=== PATIENT | female | born 1965 | race Caucasian/White ===

== ENCOUNTER → 2018-06-22 07:55 | Outpatient (CLI) | payer MEDICARE, MEDICAID, SELFPAY ==
[2018-06-22 08:04] LABS: Microscopic, Urine URINE MICROSCOPIC (MICROSCOPIC)
[2018-06-22 14:08] LABS: Appearance,Urine CLEAR (Clear); Bilirubin,Urine Negative (Negative); Blood, Urine 2+ (Negative); Color,Urine YELLOW (Yellow); Glucose,Urine (UA) Negative (Negative); Ketones,Urine Negative (Negative); Leukocyte Esterase,Urine TRACE (Negative); Nitrate,Urine Negative (Negative); Protein,Urine Negative (Negative); Urobilinogen,Urine 0.2 EU/dl (0.2)
[2018-06-22 14:10] LABS: Basophils % 0.6 % (0.1-2.0); Eosinophils # 0.4 K/mm3 (0.0-0.4); Eosinophils % 5.9 % (0.1-12.0); Hematocrit 33.2 % (37.0-47.0); Hemoglobin 10.8 g/dL (12.2-16.2); Lymphocytes # 1.9 K/mm3 (0.7-4.5); Lymphocytes % 27.6 % (10-50); Mean Corpuscular HGB Conc 32.4 g/dL (31.8-35.4); Mean Corpuscular Hemoglobin 27.8 pg (27.0-31.2); Mean Corpuscular Volume 85.6 fl (81-99); Mean Platelet Volume 8.1 fl (7.4-10.4); Monocytes # 0.3 K/mm3 (0.1-1.0); Monocytes % 4.7 % (1.7-9.3); Neutrophils # 4.2 K/mm3 (1.8-7.8); Neutrophils % 61.2 % (37.0-80.0); Platelet Count 307 K/mm3 (142-424); Red Blood Count 3.88 M/mm3 (4.20-5.40); Red Cell Distribution Width 14.1 % (11.5-17.5); White Blood Count 6.9 K/mm3 (4.8-10.8)
[2018-06-22 14:15] LABS: Creatinine,Urine Random 118 mg/dL (20-320); Total Protein,Urine Random 19.3 mg/dL (0.0-11.9)
[2018-06-22 14:20] LABS: Albumin Level 3.8 gm/dL (3.4-5.0); Anion Gap 14.6 mEq/L (5-15); Blood Urea Nitrogen 14 mg/dL (7-18); Calcium 9.4 mg/dL (8.5-10.1); Carbon Dioxide 28 mmol/L (21.0-32.0); Chloride 102 mmol/L (98-107); Creatinine,Serum 0.78 mg/dL (0.55-1.02); Estimated Glomerular Filt Rate 78 ml/min (>60); GFR (African American) 94 ML/MIN (>60); Glucose 177 mg/dL (74-106); Phosphorous 4.1 mg/dL (2.4-4.9); Potassium 3.6 mmoL/L (3.5-5.1); Sodium 141 mmol/L (136-145)
[2018-06-22 14:47] LABS: Bacteria,Urine Trace /lpf; WBC,Urine 20-50 #/hpf (0-3)
[2018-06-24 08:10] LABS: Vitamin D 25 Hydroxy 27.3 ng/mL (30.0-100.0)
== END ==
PROVIDERS: Visit Provider Internal Medicine Nephrology
DX: R80.9 Proteinuria, unspecified (principal)
CPT/HCPCS: 36415; 80069; 81001; 82570; 82652; 84155; 85025; 87086

== ENCOUNTER → 2018-06-27 13:38 | Outpatient (POV) | payer MEDICARE, MEDICAID, SELFPAY | PROVIDERS: Visit Provider Internal Medicine Nephrology | DX: Z00.00 Encounter for general adult medical examination without abnormal findings (principal) ==

== ENCOUNTER 2018-08-10 09:00 | Outpatient (RCR) | payer MEDICARE, MEDICAID, SELFPAY | END 2018-08-24 07:27 | disposition home or self-care (01) | LOC: PT.CARL 09:00 | PROVIDERS: Visit Provider Physician Assistant | DX: M51.25 Other intervertebral disc displacement, thoracolumbar region (principal); M54.16 Radiculopathy, lumbar region | CPT/HCPCS: 97012; 97110; 97140; 97163 ==

== ENCOUNTER → 2019-06-22 07:56 | Outpatient (CLI) | payer MEDICARE, MEDICAID, SELFPAY ==
[2019-06-22 08:03] LABS: Microscopic, Urine URINE MICROSCOPIC (MICROSCOPIC)
[2019-06-22 13:38] LABS: Appearance,Urine CLEAR (Clear); Bilirubin,Urine Negative (Negative); Blood, Urine Negative (Negative); Color,Urine YELLOW (Yellow); Glucose,Urine (UA) Negative (Negative); Ketones,Urine Negative (Negative); Leukocyte Esterase,Urine Negative (Negative); Nitrate,Urine Negative (Negative); Protein,Urine Negative (Negative); Specific Gravity, Urine 1.025 (1.005-1.030); Urobilinogen,Urine 0.2 EU/dl (0.2)
[2019-06-22 13:41] LABS: Basophils # 0.2 K/mm3 (0-0.2); Basophils % 1.8 % (0.1-2.0); Eosinophils # 0.7 K/mm3 (0.0-0.4); Eosinophils % 6.3 % (0.1-12.0); Hemoglobin 10.4 g/dL (12.2-16.2); Lymphocytes # 1.7 K/mm3 (0.7-4.5); Lymphocytes % 14.9 % (10-50); Mean Corpuscular HGB Conc 31.6 g/dL (31.8-35.4); Mean Corpuscular Hemoglobin 26.8 pg (27.0-31.2); Mean Corpuscular Volume 84.6 fl (81-99); Mean Platelet Volume 8.2 fl (7.4-10.4); Monocytes # 0.4 K/mm3 (0.1-1.0); Monocytes % 3.8 % (1.7-9.3); Neutrophils # 8.2 K/mm3 (1.8-7.8); Neutrophils % 73.2 % (37.0-80.0); Platelet Count 363 K/mm3 (142-424); Red Cell Distribution Width 14.2 % (11.5-17.5); White Blood Count 11.2 K/mm3 (4.8-10.8)
[2019-06-22 13:43] LABS: Creatinine,Urine Random 130 mg/dL (Not Estab.)
[2019-06-22 13:48] LABS: Albumin Level 4.1 g/dl (3.5-5.0); Anion Gap 13.2 mEq/L (5-15); Blood Urea Nitrogen 12 mg/dl (7-17); Calcium 9.9 mg/dl (8.4-10.2); Carbon Dioxide 27 mmol/L (22.0-30.0); Chloride 102 mmol/L (98-107); Estimated Glomerular Filt Rate 75 ml/min (>60); GFR (African American) 91 ML/MIN (>60); Glucose 164 mg/dl (74-100); Phosphorous 3.7 mg/dl (2.5-4.5); Potassium 4.2 mmoL/L (3.5-5.1); Sodium 138 mmol/L (136-145)
[2019-06-22 13:52] LABS: Bacteria,Urine 1+ /lpf
[2019-06-23 09:25] LABS: Vitamin D 25 Hydroxy 26.8 ng/mL (30.0-100.0)
[2019-06-24 17:08] LABS: F352 IgE Ara h8 <0.10 kU/L (Class 0); F447 IgE Ara h6 <0.10 kU/L (Class 0)
[2019-06-24 19:24] LABS: Parathyroid Hormone Intact 47 pg/mL (15-65)
[2019-06-24 19:26] LABS: Immunoglobulin E, Total 388 IU/mL (6-495)
== END ==
PROVIDERS: Nurse Practitioner; Visit Provider Internal Medicine Nephrology
DX: R80.9 Proteinuria, unspecified (principal); J45.50 Severe persistent asthma, uncomplicated; T78.1XXA Other adverse food reactions, not elsewhere classified, initial encounter; E55.9 Vitamin D deficiency, unspecified
CPT/HCPCS: 80069; 81001; 82570; 82652; 82785; 83970; 84155; 85025; 86008; 87086

== ENCOUNTER → 2020-07-01 16:19 | Outpatient (CLI) | payer MEDICARE, MEDICAID, SELFPAY ==
[2020-07-01 16:58] LABS: Basophils # 0.1 K/mm3 (0-0.2); Basophils % 0.8 % (0.1-2.0); Eosinophils # 0.4 K/mm3 (0.0-0.4); Eosinophils % 4.3 % (0.1-12.0); Hematocrit 30.7 % (37.0-47.0); Hemoglobin 9.7 g/dL (12.2-16.2); Lymphocytes # 2.6 K/mm3 (0.7-4.5); Lymphocytes % 27.9 % (10-50); Mean Corpuscular HGB Conc 31.4 g/dL (31.8-35.4); Mean Corpuscular Hemoglobin 24.8 pg (27.0-31.2); Mean Corpuscular Volume 78.9 fl (81-99); Mean Platelet Volume 8.1 fl (7.4-10.4); Monocytes # 0.5 K/mm3 (0.1-1.0); Monocytes % 5.8 % (1.7-9.3); Neutrophils # 5.7 K/mm3 (1.8-7.8); Neutrophils % 61.2 % (37.0-80.0); Platelet Count 368 K/mm3 (142-424); Red Cell Distribution Width 15.6 % (11.5-17.5); White Blood Count 9.4 K/mm3 (4.8-10.8)
[2020-07-07 04:02] LABS: D001-IgE D pteronyssinus 1.96 kU/L (Class III); D002-IgE D farinae 1.08 kU/L (Class II); E001-IgE Cat Dander 0.91 kU/L (Class II); E005-IgE Dog Dander 0.31 kU/L (Class 0/I); G002-IgE Bermuda Grass 0.63 kU/L (Class II); G006-IgE Timothy Grass 0.16 kU/L (Class 0/I); Immunoglobulin E, Total 320 IU/mL (6-495); M001-IgE Penicillium chrysogen <0.10 kU/L (Class 0); M002-IgE Cladosporium herbarum <0.10 kU/L (Class 0); M003-IgE Aspergillus fumigatus <0.10 kU/L (Class 0); M006-IgE Alternaria alternata <0.10 kU/L (Class 0); T001-IgE Maple/Box Elder 0.41 kU/L (Class I); T006-IgE Cedar, Mountain 0.17 kU/L (Class 0/I); T010-IgE Walnut 0.31 kU/L (Class 0/I); T011-IgE Maple Leaf Sycamore 0.14 kU/L (Class 0/I); T014-IgE Cottonwood <0.10 kU/L (Class 0); T015-IgE Ash, White 0.28 kU/L (Class 0/I); T022-IgE Pecan, Hickory 0.22 kU/L (Class 0/I); T070-IgE White Mulberry <0.10 kU/L (Class 0); W001-IgE Ragweed, Short 3.14 kU/L (Class III); W011-IgE Thistle, Russian <0.10 kU/L (Class 0); W014-IgE Pigweed, Common 0.32 kU/L (Class I)
[2020-07-07 10:45] LABS: E072-IgE Mouse Urine 1.42 kU/L (Class III)
== END ==
PROVIDERS: Visit Provider Internal Medicine Pulmonary Disease
DX: J45.909 Unspecified asthma, uncomplicated
CPT/HCPCS: 36415; 82785; 85025; 86003

== ENCOUNTER → 2020-07-30 07:36 | Outpatient (CLI) | payer MEDICARE, MEDICAID, SELFPAY ==
[2020-07-30 09:30] VITALS: PULSE 75; PULSE 76
[2020-07-30 09:45] VITALS: BP 118/76; BP 138/84; PULSE 76; PULSE 81; RESP 20; RESP 22; O2SAT 97; O2SAT 98
== END ==
PROVIDERS: PCP Physician Assistant; Visit Provider Internal Medicine Pulmonary Disease
DX: R06.00 Dyspnea, unspecified (principal)
CPT/HCPCS: 94060; 94618; 94640; 94727; 94729

== ENCOUNTER → 2021-07-22 11:23 | Outpatient (CLI) | payer MEDICARE, MEDICAID, SELFPAY ==
[2021-07-22 13:24] LABS: Basophils # 0.1 K/mm3 (0-0.2); Basophils % 0.7 % (0.1-2.0); Eosinophils # 0.1 K/mm3 (0.0-0.4); Eosinophils % 1.3 % (0.1-12.0); Hematocrit 30.3 % (37.0-47.0); Hemoglobin 9.9 g/dL (12.2-16.2); Lymphocytes # 1.3 K/mm3 (0.7-4.5); Lymphocytes % 13.6 % (10-50); Mean Corpuscular HGB Conc 32.6 g/dL (31.8-35.4); Mean Corpuscular Volume 88.8 fl (81-99); Mean Platelet Volume 8.5 fl (7.4-10.4); Monocytes # 0.6 K/mm3 (0.1-1.0); Monocytes % 6.3 % (1.7-9.3); Neutrophils # 7.5 K/mm3 (1.8-7.8); Neutrophils % 78.1 % (37.0-80.0); Platelet Count 340 K/mm3 (142-424); Red Blood Count 3.41 M/mm3 (4.20-5.40); Red Cell Distribution Width 16.7 % (11.5-17.5); White Blood Count 9.6 K/mm3 (4.8-10.8)
[2021-07-22 14:00] LABS: Alanine Aminotransferase 13 U/L (12-78); Albumin Level 3.2 g/dl (3.5-5.0); Alkaline Phosphatase 71 U/L (38-126); Aspartate Amino Transferase 27 U/L (14-36); Bilirubin,Indirect 0.5 mg/dL (0.0-0.9); Bilirubin,Total 0.5 mg/dl (0.2-1.3); Bilirubin,Unconjugated 0.7 mg/dL (0.0-1.1); Blood Urea Nitrogen 13 mg/dl (7-17); Creatine Kinase < 20 U/L (30-135); Estimated Glomerular Filt Rate 52 ml/min (>60); GFR (African American) 62 ML/MIN (>60); Potassium 3.5 mmoL/L (3.5-5.1); Total Protein,Serum 6.4 g/dl (6.3-8.2)
[2021-07-22 14:24] LABS: C-Reactive Protein 20.6 mg/L (0-4)
== END ==
PROVIDERS: Visit Provider Student in an Organized Health Care Education/Training Program
DX: E11.49 Type 2 diabetes mellitus with other diabetic neurological complication (principal); Z79.4 Long term (current) use of insulin
CPT/HCPCS: 80076; 82550; 82565; 84132; 84520; 85025; 86140

== ENCOUNTER → 2021-07-29 11:44 | Outpatient (CLI) | payer MEDICARE, MEDICAID, SELFPAY ==
[2021-07-29 15:19] LABS: Basophils # 0.1 K/mm3 (0-0.2); Basophils % 0.9 % (0.1-2.0); Chloride 101 mmol/L (98-107); Eosinophils # 0.1 K/mm3 (0.0-0.4); Eosinophils % 1.2 % (0.1-12.0); Hemoglobin 9.1 g/dL (12.2-16.2); Lymphocytes # 1.1 K/mm3 (0.7-4.5); Lymphocytes % 14.1 % (10-50); Mean Corpuscular HGB Conc 32.3 g/dL (31.8-35.4); Mean Corpuscular Hemoglobin 28.7 pg (27.0-31.2); Mean Corpuscular Volume 88.7 fl (81-99); Mean Platelet Volume 9.6 fl (7.4-10.4); Monocytes # 0.4 K/mm3 (0.1-1.0); Monocytes % 5.2 % (1.7-9.3); Neutrophils # 6.2 K/mm3 (1.8-7.8); Neutrophils % 78.5 % (37.0-80.0); Platelet Count 353 K/mm3 (142-424); Potassium 3.4 mmoL/L (3.5-5.1); Red Blood Count 3.16 M/mm3 (4.20-5.40); Red Cell Distribution Width 16.3 % (11.5-17.5); Sodium 136 mmol/L (136-145); White Blood Count 7.9 K/mm3 (4.8-10.8)
[2021-07-29 15:21] LABS: Alanine Aminotransferase 11 U/L (12-78); Aspartate Amino Transferase 32 U/L (14-36); Blood Urea Nitrogen 11 mg/dl (7-17); Estimated Glomerular Filt Rate 52 ml/min (>60); GFR (African American) 62 ML/MIN (>60)
[2021-07-29 15:22] LABS: Albumin Level 3.4 g/dl (3.5-5.0); Albumin/Globulin Ratio 0.9 (1.1-1.8); Alkaline Phosphatase 70 U/L (38-126); Anion Gap 10.4 mEq/L (5-15); Bilirubin,Total 1.2 mg/dl (0.2-1.3); Calcium 8.8 mg/dl (8.4-10.2); Carbon Dioxide 28 mmol/L (22.0-30.0); Globulin 3.7 g/dL (1.3-3.2); Glucose 186 mg/dl (74-100); Total Protein,Serum 7.1 g/dl (6.3-8.2)
[2021-07-29 15:28] LABS: C-Reactive Protein 29.3 mg/L (0-4)
== END ==
PROVIDERS: Visit Provider Student in an Organized Health Care Education/Training Program
DX: E11.49 Type 2 diabetes mellitus with other diabetic neurological complication (principal); Z79.4 Long term (current) use of insulin; T82.6XXA Infection and inflammatory reaction due to cardiac valve prosthesis, initial encounter
CPT/HCPCS: 80053; 85025; 86140

== ENCOUNTER 2021-08-15 19:46 | Inpatient (IN) | payer MEDICARE, MEDICAID, SELFPAY ==
--- NOTE | 2021-08-15 10:10 | PC.NURSE ---
Lab called with a critical troponin of 0.33 Name, and lab value verified x2 MD aware.
--- NOTE | 2021-08-15 19:54 | PC.NURSE ---
patient up to floor via stretcher from EMS @ this time
[2021-08-15 19:56] VITALS: BMI 61.6
--- NOTE | 2021-08-15 19:58 | XR_ITS ---
PROCEDURE INFORMATION: Exam: XR Chest Exam date and time: 08/15/2021 9:16 PM Age: 56 years old Clinical indication: Pain; Chest pressure; Prior surgery; Surgery date: 6+ months; Surgery type: Pacemaker, open heart; Additional info: Chest pain TECHNIQUE: Imaging protocol: Radiologic exam of the chest. Views: 4 or more views. COMPARISON: ABDPELWO CT abdomen pelvis wo con 07/17/2017 10:22 PM FINDINGS: Tubes, catheters and devices: AICD in place with leads in appropriate position. Lungs: Pulmonary vascular congestion with mild interstitial pulmonary edema. Hazy bibasal opacities, which may reflect pulmonary edema, subsegmental atelectasis or pneumonia in the appropriate clinical setting. Pleural spaces: No pleural effusion. No pneumothorax. Heart/Mediastinum: Global cardiomegaly. Prominent central venous structures suggestive of increased intravascular volume vs increased right heart pressures. Bones/joints: No acute osseous abnormality. IMPRESSION: 1. Pulmonary vascular congestion with mild interstitial pulmonary edema. 2. Global cardiomegaly. 3. Prominent central venous structures suggestive of increased intravascular volume vs increased right heart pressures. 4. Hazy bibasal opacities, which may reflect pulmonary edema, subsegmental atelectasis or pneumonia in the appropriate clinical setting.
[2021-08-15 20:00] VITALS: PULSE 100; PULSE 85
[2021-08-15 20:32] VITALS: BP 115/80; PULSE 93; RESP 17; TEMP 36.4; O2SAT 100; BMI 61.6
[2021-08-15 21:25] LABS: Basophils # 0.1 K/mm3 (0-0.2); Basophils % 1.6 % (0.1-2.0); Eosinophils # 0.2 K/mm3 (0.0-0.4); Hematocrit 30.6 % (37.0-47.0); Hemoglobin 9.4 g/dL (12.2-16.2); Lymphocytes # 1.7 K/mm3 (0.7-4.5); Lymphocytes % 18.5 % (10-50); Mean Corpuscular HGB Conc 30.6 g/dL (31.8-35.4); Mean Corpuscular Hemoglobin 27.8 pg (27.0-31.2); Mean Corpuscular Volume 90.8 fl (81-99); Mean Platelet Volume 8.7 fl (7.4-10.4); Monocytes # 0.5 K/mm3 (0.1-1.0); Monocytes % 4.9 % (1.7-9.3); Neutrophils # 6.8 K/mm3 (1.8-7.8); Neutrophils % 72.9 % (37.0-80.0); Platelet Count 260 K/mm3 (142-424); Red Blood Count 3.37 M/mm3 (4.20-5.40); Red Cell Distribution Width 17.5 % (11.5-17.5); White Blood Count 9.3 K/mm3 (4.8-10.8)
[2021-08-15 21:40] LABS: Chloride 103 mmol/L (98-107); Potassium 3.3 mmoL/L (3.5-5.1); Sodium 137 mmol/L (136-145)
[2021-08-15 21:43] LABS: Anion Gap 12.3 mEq/L (5-15); Blood Urea Nitrogen 15 mg/dl (7-17); Carbon Dioxide 25 mmol/L (22.0-30.0); Creatinine Clearance Estimated 46 mL/min (50-200); Estimated Glomerular Filt Rate 47 ml/min (>60); GFR (African American) 56 ML/MIN (>60); Glucose 135 mg/dl (74-100)
[2021-08-15 21:44] LABS: Calcium 8.9 mg/dl (8.4-10.2)
[2021-08-15 21:58] LABS: Troponin I 0.33 ng/ml (0.00-0.034)
[2021-08-15 22:16] LABS: Coronavirus 19, PCR Not Detected (NotDetected); Influenza A, PCR Not Detected (NotDetected); Influenza B, PCR Not Detected (NotDetected)
[2021-08-16] VITALS (9 sets, daily range): BP systolic 75–121; BP diastolic 49–74; PULSE 52–140; RESP 17–28; TEMP 36.5–37.6; O2SAT 98–100
[2021-08-16 00:57] LABS: Troponin I 0.37 ng/ml (0.00-0.034)
--- NOTE | 2021-08-16 01:00 | PC.NURSE ---
Lab called with a critical troponin of 0.37 Name, , and lab value verified x2 MD diesel mechanic construction aware.
--- NOTE | 2021-08-16 02:56 | PC.NURSE ---
Patient has remained on 3LNC. She has not reported any chest pain since arrival to the floor. Patient lung sounds remained unchanged and clear throughout. Patient did have reports of shortness of breath during the night, repositioning the patient seemed to help with air flow. Vitals have remained stable and remains in controlled a-fib on telemetry.
[2021-08-16 04:31] LABS: Troponin I 0.32 ng/ml (0.00-0.034)
--- NOTE | 2021-08-16 04:32 | PC.NURSE ---
Lab called with a critical troponin of 0.32 Name, , and lab value verified x2. MD cost controller aware.
--- NOTE | 2021-08-16 08:23 | HMH.PHAVTE ---
[facility] Pharmacy VTE Monitoring - Patient Demographics Admission date: 08/16/21 Report Date: 08/16/21 Time: 08:23 Allergies/Adverse Reactions: Patient Allergies lisinopril [LISINOPRIL] Allergy (Unknown, Verified 08/01/20 11:41) Unknown allergy reaction IV Dye Allergy (Uncoded 07/01/20 15:55) Unknown allergy reaction Height: 1.63 m Weight: 162.84 kg - VTE Risk Labs: VTE Related Lab Results Hgb 9.4 g/dL (12.2-16.2) L 08/15/21 21:15 Hct 30.6 % (37.0-47.0) L 08/15/21 21:15 Plt Count 260 K/mm3 (142-424) 08/15/21 21:15 BUN 15 mg/dl (7-17) 08/15/21 21:15 Creatinine 1.20 mg/dl (0.52-1.04) H 08/15/21 21:15 Estimated Creat Clear 46 mL/min (50-200) 08/15/21 21:15 Was VTE Risk Assessment Performed: Yes VTE Score: 6 VTE Risk Level: Moderate Risk Clinical Trial Participant: No - Prophylaxis VTE Prophylaxis Ordered?: Yes Types of VTE Prophylaxis: TEDS Knee High
--- NOTE | 2021-08-16 08:45 | HMH.PHAINT ---
HOME MEDICATION LIST VERIFIED USING LIST FROM OUTPATIENT PHARMACY
--- NOTE | 2021-08-16 12:38 | HMH.HP ---
*Admission Date: 08/16/21 *Chief complaint: volume overload, elevated troponins *History of present illness: Patient is a 56-year-old female who was admitted to our service in transfer from [facility] last night. Transfer was prompted by elevated troponins and a complex cardiac history. Patient is status post left heart cath in October 2020. She relays there were no occlusive lesions. Subsequent right heart cath showed pulmonary hypertension. She is followed by Dr. Liliana Khan, and Dr Eduardo. Her family psychologist had suggested admission at [facility] for diuresis but they had no beds. They were trying to arrange it with her home health service but these plans did not come to fruition. Patient has a history of pacemaker, placed [address] Fraser. History of bovine aortic valve, by Dr Campos History of atrial fibrillation, has failed at least 2 attempts at cardioversion. He was placed on amiodarone, metoprolol and digoxin subsequently. Patient had an unfortunate episode of endocarditis, diagnosed in mid May and she remained at till July 17. He relays that vegetations were discovered on the bovine valve. She remains on suppressive antibiotics. Patient with history of pulmonary embolism x2. Eliquis. Patient with history of BROOK. Patient has type 2 diabetes with known proteinuria. Patient is hypothyroid. While at patient underwent a liver biopsy which demonstrated cirrhosis. He denies a history of hepatitis or alcohol. She was told at that point that she was not decompensated. Patient has a markedly elevated BMI. Dr. Campos deferred any further valve surgery. [facility] History Medical History: Reports:: Arrhythmia, Atrial Fibrillation, Carotid Stenosis, Congestive Heart Failure, Chronic Obstructive Pulmonary Disease (COPD), Coronary Artery Disease, Diabetes Mellitus Type 2, Hyperlipidemia, Hypertension, Internal Pacemaker Denies:: Cancer, Diabetes Mellitus Type 1, MRSA *Have you ever received a pneumonia vaccine?: Yes *Have you received a flu vaccine this season?: No Other Medical History: Reports: Hypothyroidism, Other Other Surgeries: Yes: Cardiac Catheterization, Cardiac Surgery, Cholecystectomy, Colonoscopy, Dilation and Curettage, Hysterectomy-Total, Pacemaker, Other Valve Replacement Amputation: No Fractures: No - *Social History Last grade of school completed: High school graduate Smoking Status: Never smoker Alcohol Intake: never Alcohol Intake Frequency:: other Substance Use Type: denies use *Occupational Status:: disabled Housing: house Household Members: family *Travel in the last 8 weeks: None Family Hx:: Coronary Artery Disease, Diabetes, Hyperlipidemia, Hypertension Meds Home Medications Medication Instructions Recorded Confirmed Type Levothyroxine Sodium 125 mcg PO DAILY 07/17/17 08/16/21 History [Levothyroxine 125mcg (0.125mg) Tab] insulin glargine 100 unit/mL (3 66 unit SQ HS 06/06/18 08/16/21 History mL) subcutaneous pen insulin lispro 100 unit/mL 20 unit SQ TID 06/06/18 08/16/21 History subcutaneous solution albuterol sulfate 90 mcg/actuation 1 inh INHALATION QID PRN #8.5 g 07/01/20 08/16/21 Rx aerosol inhaler alprazolam 0.5 mg tablet 0.5 mg PO BID PRN 07/01/20 08/16/21 History apixaban 5 mg tablet 5 mg PO BID 07/01/20 08/16/21 History atorvastatin 10 mg tablet 10 mg PO DAILY 07/01/20 08/16/21 History dulaglutide 0.75 mg/0.5 mL 0.75 mg SQ WEEKLY 07/01/20 08/16/21 History subcutaneous pen injector nitroglycerin 0.4 mg sublingual 0.4 mg SUBLINGUAL Q5M PRN 07/01/20 08/16/21 History tablet pantoprazole 40 mg tablet,delayed 40 mg PO DAILY 07/01/20 08/16/21 History release Amiodarone HCl 200 mg PO DAILY 08/16/21 08/16/21 History Bumetanide 1 mg PO DIRECTED 08/16/21 08/16/21 History Digoxin [Digoxin 0.125mg Tablet] 125 mcg PO DAILY 08/16/21 08/16/21 History EPINEPHrine [Epinephrine] 0.3 mg IJ DIRECTED PRN 08/16/21 08/16/21 History Ferrous Sulfate 325 mg PO DA
[2021-08-16 13:45] LABS: Ammonia 19 umol/L (9-30)
[2021-08-16 14:16] LABS: Thyroid Stimulating Hormone 5.21 uIU/mL (0.465-4.68)
--- NOTE | 2021-08-16 15:26 | ECG_ITS ---
APPROVED REPORT Exam: Resting ECG HR:125 bpm ECG Measurements Heart Rate 125 AXES NM 354 P QRSd 97 QRS 15 QT 342 T 89 QTc 416 Conclusion ELECTRONIC ATRIAL PACEMAKER NONSPECIFIC ST & T-WAVE ABNORMALITY ABNORMAL RHYTHM ECG UNCONFIRMED REPORT Electronically signed by : Pablo Merritt MD 08/18/2021 21:49:05
[2021-08-16 17:35] LABS: Microscopic, Urine URINE MICROSCOPIC (MICROSCOPIC)
[2021-08-16 17:38] LABS: Appearance,Urine CLEAR (Clear); Bilirubin,Urine Negative (Negative); Blood, Urine Negative (Negative); Color,Urine YELLOW (Yellow); Glucose,Urine (UA) Negative (Negative); Ketones,Urine Negative (Negative); Leukocyte Esterase,Urine Negative (Negative); Nitrate,Urine Negative (Negative); Protein,Urine TRACE (Negative); Specific Gravity, Urine 1.015 (1.005-1.030); Urobilinogen,Urine 0.2 EU/dl (0.2)
[2021-08-16 17:54] LABS: Bacteria,Urine 2+ /lpf; Yeast,Urine 1+ /lpf
[2021-08-16 18:54] LABS: POC Glucose,Bedside 158 (70-110)
--- NOTE | 2021-08-16 19:57 | PC.NURSE ---
1545 - patient HR increase 130-138 with BP 84/60 manually taken by this teletypewriter operator; Provider notified and no new orders given at this time states wants to remain on course of treatment at this time. 1700 - Patient got up to use bedside toilet that was seated directly next to the recliner and HR increased to 175; provider notified and gave new order to insert catheter.
--- NOTE | 2021-08-16 20:02 | PC.NURSE ---
1712 recvd call from banquet steward HR 140-[address] Fraser and recjatinder new order for Ditalizem 10mg bolus IVP now and to start on 10mL/hr Ditalizam Drip; Orders submitted to Night Watch; patient moved to Stepdown and report given to Akanksha Sandoval RN
[2021-08-16 21:11] LABS: POC Glucose,Bedside 172 (70-110)
[2021-08-17] VITALS (22 sets, daily range): BP systolic 110–150; BP diastolic 60–87; PULSE 90–128; RESP 24–32; TEMP 36.3–36.8; O2SAT 89–98
--- NOTE | 2021-08-17 04:37 | PC.NURSE ---
Pt A&O x4. Has slept at intervals this shift. Has c/o soa tonight. She is currently on 3L O2 NC. She is currently controlled afib on telemetry. Diltiazem is infusing @ 15 ml/hr. Attempted to titrate down to 10 ml/hr, but HR increased to 120s and pt became more soa so it was titrated back up. Pt sat in chair early in shift and tolerated well. F/C draining to bedside with total urine output of 1500 ml thus far. No other concerns at this time.
[2021-08-17 05:58] LABS: POC Glucose,Bedside 142 (70-110)
[2021-08-17 07:09] LABS: Basophils # 0.1 K/mm3 (0-0.2); Basophils % 0.8 % (0.1-2.0); Eosinophils # 0.1 K/mm3 (0.0-0.4); Eosinophils % 0.7 % (0.1-12.0); Hematocrit 30.1 % (37.0-47.0); Hemoglobin 9.4 g/dL (12.2-16.2); Lymphocytes # 1.3 K/mm3 (0.7-4.5); Lymphocytes % 13.8 % (10-50); Mean Corpuscular HGB Conc 31.4 g/dL (31.8-35.4); Mean Corpuscular Hemoglobin 29.1 pg (27.0-31.2); Mean Corpuscular Volume 92.6 fl (81-99); Mean Platelet Volume 8.8 fl (7.4-10.4); Monocytes # 0.4 K/mm3 (0.1-1.0); Monocytes % 4.5 % (1.7-9.3); Neutrophils # 7.7 K/mm3 (1.8-7.8); Neutrophils % 80.1 % (37.0-80.0); Platelet Count 284 K/mm3 (142-424); Red Blood Count 3.24 M/mm3 (4.20-5.40); Red Cell Distribution Width 17.7 % (11.5-17.5); White Blood Count 9.6 K/mm3 (4.8-10.8)
[2021-08-17 07:11] LABS: Chloride 102 mmol/L (98-107); Potassium 3.4 mmoL/L (3.5-5.1); Sodium 138 mmol/L (136-145)
[2021-08-17 07:13] LABS: Blood Urea Nitrogen 13 mg/dl (7-17); Creatinine Clearance Estimated 46 mL/min (50-200); Estimated Glomerular Filt Rate 47 ml/min (>60); GFR (African American) 56 ML/MIN (>60)
[2021-08-17 07:14] LABS: Alanine Aminotransferase 13 U/L (12-78); Albumin/Globulin Ratio 1.1 (1.1-1.8); Alkaline Phosphatase 80 U/L (38-126); Anion Gap 11.4 mEq/L (5-15); Aspartate Amino Transferase 29 U/L (14-36); Bilirubin,Total 4.3 mg/dl (0.2-1.3); Calcium 9.1 mg/dl (8.4-10.2); Carbon Dioxide 28 mmol/L (22.0-30.0); Globulin 3.6 g/dL (1.3-3.2); Glucose 160 mg/dl (74-100); Total Protein,Serum 7.6 g/dl (6.3-8.2)
[2021-08-17 12:04] LABS: POC Glucose,Bedside 193 (70-110)
--- NOTE | 2021-08-17 14:57 | XR_ITS ---
PROCEDURE INFORMATION: Exam: XR Chest Exam date and time: 08/17/2021 3:12 PM Age: 56 years old Clinical indication: Prior surgery; Surgery date: 6+ months; Surgery type: Pacemaker placed and aortic valve replaced. Patient HX: Increasing dyspnea, HX of copd and asthma. TECHNIQUE: Imaging protocol: Radiologic exam of the chest. Views: 1 view. COMPARISON: CR XR CHEST AP 08/15/2021 9:16 PM FINDINGS: Tubes, catheters and devices: A pacemaker device is present, and its leads are in appropriate position. There are sternal wires consistent with previous sternotomy incision. Lungs: Atelectasis and/or early infiltrative changes noted within both lung bases. Pleural spaces: There is no evidence of pneumothorax. There are no pleural effusions present. Heart/Mediastinum: Heart demonstrates mild diffuse enlargement. Vasculature: The vasculature demonstrates diffuse mild atherosclerotic calcification. Bones/joints: The thoracic spine demonstrates mild degenerative changes at multiple levels. IMPRESSION: 1. Mild cardiomegaly. 2. Atelectasis and/or early infiltrative changes noted within both lung bases.
--- NOTE | 2021-08-17 15:02 | HMH.ACPN2 ---
Internal Medicine - PN: Subj *Date: 08/17/21 *Time: 15:05 Interval history: Patient is complaining of dyspnea and examined today. We are aggressively diuresing her. She has a history of asthma and at home uses albuterol inhaler and duoneb prn. She is also complaining of nausea, refractory to zofran She relays some purulent tinged sputum Exam Vital signs and Labs for Last 24 Hours: Temp Pulse Resp BP Pulse Ox 97.6 F 107 H 26 H 121/74 89 L 08/17/21 13:00 08/17/21 14:40 08/17/21 14:00 08/17/21 14:00 08/17/21 14:40 Laboratory Results - last 24 hr 08/16/21 16:57: POC Glucose 158 H 08/16/21 17:20: Urine Color Yellow, Urine Appearance Clear, Urine pH 6.0, Ur Specific [place] 1.015, Urine Protein Trace, Urine Glucose (UA) Negative, Urine Ketones Negative, Urine Blood Negative, Urine Nitrate Negative, Urine Bilirubin Negative, Urine Urobilinogen 0.2, Ur Leukocyte Esterase Negative, Urine RBC None, Urine WBC 3-5, Ur Squamous Epith Cells 3-5, Urine Bacteria 2+, Urine Yeast 1+ 08/16/21 20:35: POC Glucose 172 H 08/17/21 05:44: POC Glucose 142 H 08/17/21 06:54: WBC 9.6, RBC 3.24 L, Hgb 9.4 L, Hct 30.1 L, MCV 92.6, MCH 29.1, MCHC 31.4 L, RDW 17.7 H, Plt Count 284, MPV 8.8, Neut % (Auto) 80.1 H, Lymph % (Auto) 13.8, [place] % (Auto) 4.5, Eos % (Auto) 0.7, Baso % (Auto) 0.8, Neut # (Auto) 7.7, Lymph # (Auto) 1.3, [place] # (Auto) 0.4, Eos # (Auto) 0.1, Baso # (Auto) 0.1 08/17/21 06:54: Sodium 138, Potassium 3.4 L, Chloride 102, Carbon Dioxide 28, Anion Gap 11.4, BUN 13, Creatinine 1.20 H, Estimated Creat Clear 46, Estimated GFR 47 L, Est GFR ( Amer) 56 L, Glucose 160 H, Calcium 9.1, Total Bilirubin 4.3 H, AST 29, ALT 13, Alkaline Phosphatase 80, Total Protein 7.6, Albumin 4.0, Globulin 3.6 H, Albumin/Globulin Ratio 1.1 08/17/21 06:54: Digoxin 0.70 08/17/21 11:56: POC Glucose 193 H I & O for Last 24 hours: Intake & Output 08/14/21 08/15/21 08/16/21 08/17/21 23:59 23:59 23:59 23:59 Intake Total 960 / 960 428 / 428 Output Total 1300 / 1300 330 / 330 Balance -340 / -340 98 / 98 Weight 359 lb Microbiology Reports for the Last 24 Hours: Microbiology 08/16/21 17:20 Urine,Clean Catch Urine Culture - Preliminary - Constitutional obese, chronically ill appearing, cooperative - *Routine HEENT Exam Head: Present: normocephalic Eye: Present: EOMI, PERRL ENT: Present: mucous membranes moist - *Routine Neck Exam Present: supple. Absent: lymphadenopathy - *Routine Respiratory Exam Present: rhonchi, crackles, diminished air movement. Absent: accessory muscle use - *Routine Cardiovascular Exam Present: irregularly irregular - *Routine Abdominal Exam Present: soft, normoactive bowel sounds. Absent: tenderness - *Routine Extremities Exam Present: edema. Absent: tenderness - *Routine Skin Exam Present: warm. Absent: rash - *Routine Neurological Exam Present: alert, oriented X3 Assessment and Plan (1) Non-STEMI (non-ST elevated myocardial infarction) Status: Acute Category: Medical Code(s): I21.4 - Non-ST elevation (NSTEMI) myocardial infarction (2) History of endocarditis Status: Acute Category: Medical Code(s): Z86.79 - Personal history of other diseases of the circulatory system (3) Aortic valve prosthesis present Status: Acute Category: Surgical Code(s): Z95.2 - Presence of prosthetic heart valve (4) Diabetes mellitus with diabetic autonomic neuropathy, with long-term current use of insulin Status: Acute Category: Medical Code(s): E11.43 - Type 2 diabetes mellitus with diabetic autonomic (poly)neuropathy; Z79.4 - assisted (current) use of insulin (5) Atrial fibrillation Status: Acute Category: Medical Code(s): I48.91 - Unspecified atrial fibrillation (6) Pulmonary hypertension Status: Acute Category: Medical Code(s): I27.20 - Pulmonary hypertension, unspecified (7) Hypothyroid Status: Acute Category: Medical Code(s): E03.9 - Hypothyroid
[2021-08-17 18:48] LABS: ABG Base Excess -3.1 mmol/L (-2.4-2.3); ABG Oxygen Saturation 90 % (90-100); ABG PO2 54.5 mmhg (80-100); ABG TCO2 20.8 mmhg (23-27)
[2021-08-17 18:49] LABS: Allen's Test y; Oxygen 4 %; Source rr
--- NOTE | 2021-08-17 19:22 | CT_ITS ---
PROCEDURE INFORMATION: Exam: CTA Chest With Contrast Exam date and time: 08/17/2021 7:39 PM Age: 56 years old Clinical indication: Dyspnea and shortness of breath; Additional info: R/O pe TECHNIQUE: Imaging protocol: Computed tomographic angiography of the chest with contrast. 3D rendering (Not supervised by radiologist): MIP and/or 3D reconstructed images were created by the technologist. Radiation optimization: All CT scans at this facility use at least one of these dose optimization techniques: automated exposure control; mA and/or kV adjustment per patient size (includes targeted exams where dose is matched to clinical indication); or iterative reconstruction. Contrast material: ISOVUE 370; Contrast volume: 70 ml; Contrast route: INTRAVENOUS (IV); COMPARISON: CR XR CHEST PORTABLE 08/17/2021 3:12 PM FINDINGS: Tubes, catheters and devices: Left subclavian transvenous pacemaker leads within the right cardiac chambers. Pulmonary arteries: Main pulmonary artery enlarged, measuring 40 mm in diameter at the level of the pulmonary artery bifurcation, compatible with pulmonary arterial hypertension. No acute pulmonary emboli. Aorta: Atherosclerotic disease of the thoracic aorta, without aneurysm. Lungs: Patchy ground-glass and small consolidations throughout the upper and lower lobes bilaterally, with mild inter and intra lobular septal thickening and peribronchial cuffing, likely hydrostatic/cardiogenic pulmonary edema. Pleural spaces: Small-sized bilateral pleural effusions. Heart: Changes of prior sternotomy with aortic valve repair. Mild 4 chamber cardiac enlargement. Lymph nodes: Unremarkable. No enlarged lymph nodes. Liver: Nodular hepatic peripheral contour, compatible with cirrhosis. Intraperitoneal space: Small amount of intraperitoneal free fluid. Bones/joints: See Heart finding. Soft tissues: Unremarkable. IMPRESSION: 1. No acute pulmonary emboli. 2. Hydrostatic/cardiogenic pulmonary edema, with small bilateral pleural effusions and associated atelectasis. Concomitant multifocal pneumonia possible. Recommend follow-up. 3.Other (less critical/noncritical/incidental) findings as above; please refer to the body of report for further details.
[2021-08-17 19:28] LABS: NT Pro Brain Natriuretic Pep. 33800 pg/mL (0-125)
--- NOTE | 2021-08-17 19:52 | PC.NURSE ---
[place] [id number] at 1937. new orders received at 1949. bumex 4mg iv times 1 now, d-dimer
--- NOTE | 2021-08-17 20:24 | PC.NURSE ---
PT IS RESTING IN BED AT THIS TIME. ALERT AND ORIENTED X4. PT WAS UP IN THE CHAIR FOR MOST OF THE SHIFT. PT'S BIGGEST COMPLAINT T/O THE SHIFT HAS BEEN SOA AND NAUSEA. O2 WAS INCREASED TO 4 L AT 1700 DUE TO PT DESATTING 87-89. RESPIRATIONS 32-36/MIN. LUNG SOUNDS DIMINISHED WITH AUDIBLE WHEEZING EVEN AFTER DUONEBS AND SOLUMEDROL. PT HAS ONLY DIURESED 600 ML'S THIS SHIFT. NOTIFIED DR. HER AND HE STATED TO CALL . GIANA ORDERED ABG, BNP AND CHEST CTA. AFTER ABG AND BNP RESULTS WERE REPORTED PT WAS TRANSPORTED TO CT ON NON REBREATHER AND WAS SWITCHED TO VAPOTHERM 20 L 100% FIO2 WHEN SHE ARRIVED BACK TO THE FLOOR. IV BUMEX 4 MG AND D-DIMER WAS ORDERED PER . PT IS STILL AFIB ON THE MONITOR. HR 90-110. CARDIZEM DRIP AT 15MG/HR. 1900 BP 100/78. REPORT HAND OFF TO ELYSSA MATTHEWS RN.
[2021-08-17 20:41] LABS: D-Dimer 1.42 ug/mL (0.0-0.5)
[2021-08-17 22:10] LABS: POC Glucose,Bedside 297 (70-110)
[2021-08-17 23:19] LABS: Coronavirus 19, PCR Not Detected (NotDetected); Influenza A, PCR Not Detected (NotDetected); Influenza B, PCR Not Detected (NotDetected)
[2021-08-18] VITALS (21 sets, daily range): BP systolic 101–131; BP diastolic 55–83; PULSE 70–107; RESP 23–35; TEMP 35.8–37.1; O2SAT 91–100; BMI 61.2
--- NOTE | 2021-08-18 06:45 | PC.NURSE ---
Pt remains on Vapotherm. Currently @ 16L 60%. Has c/o soa. No N/V. She remains on Diltiazem @10 ml/hr. Has had decreased urine output. 350 ml. aware. Pt is currently NPO for Heart cath this AM. VSS. Medication admin per apr. Bed bath given. Family at bedside. Will continue to monitor.
[2021-08-18 06:46] LABS: POC Glucose,Bedside 311 (70-110)
--- NOTE | 2021-08-18 08:52 | PC.NURSE ---
Milrinone gtt started @ 0.125mcg/kg/min (6.1mL/hr).
--- NOTE | 2021-08-18 10:38 | PC.NURSE ---
rounded on patient. asked if she had any questions on her medications speceficallt the cardizem gtt. she stated she felt she understood everything pretty well. also went over plan for heart cath and patient stated she had several and didn't have any further questions. 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 no complaints or concerns. previous bath she stated this morning at 4am. stated every one had been very nice this stay.
--- NOTE | 2021-08-18 10:58 | HMH.CNCARD ---
History of Present Illness Consult date: 08/18/21 Requesting physician: Raul Ramírez Consult reason: shortness of breath Chief complaint: elevated trop, soa Additional Medical History:: Past medical hx morbid obesity [facility] 2020- non occulsive lesions per patient [facility]- Increased pulmonary htn Pacemaker 2012 Bovine aortic valve by Dr. Campos Afib with to failed cardioversions- On amio, Metoprolol, and Dig Endocarditis dx in Mid may was inpatient at from May thru june Veg noted on aortic valve- patient on suppresive abx BROOK DM Cirrhosis History of present illness: From Dr. Ramírez' HPI: Patient is a 56-year-old female who was admitted to our service in transfer from [facility] last night. Transfer was prompted by elevated troponins and a complex cardiac history. Patient is status post left heart cath in October 2020. She relays there were no occlusive lesions. Subsequent right heart cath showed pulmonary hypertension. She is followed by Dr. Liliana Khan, and Dr Eduardo. Her hotel staff member had suggested admission at [facility] for diuresis but they had no beds. They were trying to arrange it with her home health service but these plans did not come to fruition. Patient has a history of pacemaker, placed [address] Fraser. History of bovine aortic valve, by Dr Campos History of atrial fibrillation, has failed at least 2 attempts at cardioversion. He was placed on amiodarone, metoprolol and digoxin subsequently. Patient had an unfortunate episode of endocarditis, diagnosed in mid May and she remained at till July 17. He relays that vegetations were discovered on the bovine valve. She remains on suppressive antibiotics. Patient with history of pulmonary embolism x2. Eliquis. Patient with history of BROOK. Patient has type 2 diabetes with known proteinuria. Patient is hypothyroid. While at patient underwent a liver biopsy which demonstrated cirrhosis. He denies a history of hepatitis or alcohol. She was told at that point that she was not decompensated. Patient has a markedly elevated BMI. Dr. Campos deferred any further valve surgery. Cardiology note: 56 year old female with the above hx was transferred to our facility for elevated trops and for diuresis from [facility]. Patient reports she has been in afib and has failed cardioversion x 2. Recently was started on amio, metoprolol, and dig last week and was suppose to be checked this previous wednesday by cards. When talked with office, was advised she needed to go to [facility] for diureses. She reports the EMS crew would only take her to [facility]. She reports progressive and worsening soa over the last few months, worse the last week, present at rest. Reports she did have mild chest pressure when she arrived at hospital but she thinks its because heart rate was so high. Denies pain since then. Upon presentation potassium was 3.4, creatinine 1.2. EKG showed afib rvr. ST depression present in V4-V6. Patient currently afib, rate controlled. BP on low side, currently on Milrinone drip. CTA negative for PE, positive for Hydrostatic/cardiogenic pulmonary edema with small bilateral pleural effusions. [facility] History Medical History: Reports:: Arrhythmia, Atrial Fibrillation, Carotid Stenosis, Congestive Heart Failure, Chronic Obstructive Pulmonary Disease (COPD), Coronary Artery Disease, Diabetes Mellitus Type 2, Hyperlipidemia, Hypertension, Internal Pacemaker Denies:: Cancer, Diabetes Mellitus Type 1, MRSA *Have you ever received a pneumonia vaccine?: Yes *Have you received a flu vaccine this season?: No Other Medical History: Reports: Hypothyroidism, Other Other Surgeries: Yes: Cardiac Catheterization, Cardiac Surgery, Cholecystectomy, Colonoscopy, Dilation and Curettage, Hysterectomy-Total, Pacemaker, Other Valve Replacement Amputation: No Fractures: No - *Social History Last grade of school completed: High school graduate Smoking Status: Never smoker Thanh
--- NOTE | 2021-08-18 12:07 | HMH.ACPN2 ---
Internal Medicine - PN: Subj *Date: 08/19/21 *Time: 06:12 Interval history: feels some better - will need transfer for possible tavr Exam Vital signs and Labs for Last 24 Hours: Temp Pulse Resp BP Pulse Ox 97.8 F 104 H 35 H 103/73 L 96 08/18/21 08:00 08/18/21 11:02 08/18/21 10:00 08/18/21 10:00 08/18/21 11:02 Laboratory Results - last 24 hr 08/17/21 18:31: Specimen Source rr, O2 % 4, ABG pH 7.50 H, ABG pCO2 26.0 L, ABG pO2 54.5 L, ABG HCO3 20.0 L, ABG Total CO2 20.8 L, ABG O2 Saturation 90, ABG Base Excess -3.1 L, Freddy Test y 08/17/21 18:45: NT-Pro-B Natriuret Pep 67929 H 08/17/21 20:20: D-Dimer 1.42 H 08/17/21 20:57: POC Glucose 297 H 08/17/21 23:15: SARS-CoV-2 (PCR) Not detected, Influenza A Untype (PCR) Not detected, Influenza Type B (PCR) Not detected 08/18/21 05:51: POC Glucose 311 H* I & O for Last 24 hours: Intake & Output 08/16/21 08/17/21 08/18/21 08/19/21 11:59 11:59 11:59 11:59 Intake Total 480 / 480 788 / 788 722 / 722 Output Total 1630 / 1630 890 / 890 Balance 480 / 480 -842 / -842 -168 / -168 Weight 359 lb Microbiology Reports for the Last 24 Hours: Microbiology 08/16/21 17:20 Urine,Clean Catch Urine Culture - Preliminary - Constitutional no acute distress, obese - *Routine HEENT Exam Head: Present: normocephalic Eye: Present: EOMI, PERRL ENT: Present: mucous membranes dry - *Routine Neck Exam Absent: JVD - *Routine Respiratory Exam Present: decreased breath sounds - *Routine Cardiovascular Exam Present: RRR, murmur, S4 - *Routine Abdominal Exam Present: soft - *Routine Extremities Exam Absent: calf tenderness - *Routine Skin Exam Present: intact - *Routine Neurological Exam Present: alert, oriented X3, CN II-XII intact - Routine Psychiatric Exam Present: cooperative Assessment and Plan (1) Non-STEMI (non-ST elevated myocardial infarction) Status: Acute Category: Medical Code(s): I21.4 - Non-ST elevation (NSTEMI) myocardial infarction (2) History of endocarditis Status: Acute Category: Medical Code(s): Z86.79 - Personal history of other diseases of the circulatory system (3) Aortic valve prosthesis present Status: Acute Category: Surgical Code(s): Z95.2 - Presence of prosthetic heart valve (4) Diabetes mellitus with diabetic autonomic neuropathy, with long-term current use of insulin Status: Acute Category: Medical Code(s): E11.43 - Type 2 diabetes mellitus with diabetic autonomic (poly)neuropathy; Z79.4 - terminal supervisor (current) use of insulin (5) Atrial fibrillation Status: Acute Category: Medical Code(s): I48.91 - Unspecified atrial fibrillation (6) Pulmonary hypertension Status: Acute Category: Medical Code(s): I27.20 - Pulmonary hypertension, unspecified (7) Hypothyroid Status: Acute Category: Medical Code(s): E03.9 - Hypothyroidism, unspecified (8) Asthma Status: Acute Category: Medical Code(s): J45.909 - Unspecified asthma, uncomplicated (9) Cardiac volume overload Status: Acute Category: Medical Code(s): E87.79 - Other fluid overload (10) CHF (congestive heart failure) Status: Acute Category: Medical Code(s): I50.9 - Heart failure, unspecified (11) Chronic renal disease Status: Acute Category: Medical Code(s): N18.9 - Chronic kidney disease, unspecified (12) Proteinuria Status: Acute Category: Medical Code(s): R80.9 - Proteinuria, unspecified (13) Pacemaker Status: Acute Category: Medical Code(s): Z95.0 - Presence of cardiac pacemaker (14) Pulmonary hypertension Status: Acute Category: Medical Code(s): I27.20 - Pulmonary hypertension, unspecified (15) History of cardioversion Status: Acute Category: Medical Code(s): Z98.890 - Other specified postprocedural states (16) Cirrhosis Status: Acute Category: Medical Code(s): K74.60 - Unspecified cirrhosis of liver (17) Prosthetic aortic valve stenosis S
[2021-08-18 12:36] LABS: Basophils % 0.3 % (0.1-2.0); Eosinophils # 0.1 K/mm3 (0.0-0.4); Eosinophils % 0.5 % (0.1-12.0); Hematocrit 30.8 % (37.0-47.0); Hemoglobin 9.5 g/dL (12.2-16.2); Lymphocytes # 0.8 K/mm3 (0.7-4.5); Lymphocytes % 6.5 % (10-50); Mean Corpuscular HGB Conc 30.8 g/dL (31.8-35.4); Mean Corpuscular Hemoglobin 29.1 pg (27.0-31.2); Mean Corpuscular Volume 94.6 fl (81-99); Mean Platelet Volume 8.9 fl (7.4-10.4); Monocytes # 0.3 K/mm3 (0.1-1.0); Monocytes % 2.1 % (1.7-9.3); Neutrophils # 10.9 K/mm3 (1.8-7.8); Neutrophils % 90.6 % (37.0-80.0); Platelet Count 339 K/mm3 (142-424); Red Blood Count 3.25 M/mm3 (4.20-5.40); Red Cell Distribution Width 18.1 % (11.5-17.5)
[2021-08-18 12:38] LABS: MANUAL DIFFERENTIAL MANUAL DIFFERENTIAL (MANUAL DIFF)
--- NOTE | 2021-08-18 12:41 | CA_ITS ---
APPROVED REPORT EXAM: Comprehensive 2D, Doppler, and color-flow Echocardiogram Mortgage Manager: JASBIR Mercedes, RVS Ht: 5 ft 4 in Wt: 369lbs BSA: 2.54 BP: 105/77 mmHg Indications: NSTEMI transferred from [facility], [id number] with AoV vegetaion-mid 05/2021-06/2021 per [facility], AICD, Afib with 2 failed cardioversions, PHTN, CHF, Cirrhosis, Morbid obesity Echo Enhancing Agent Comments: Technically difficult exam due to patient factors. 2D Dimensions Aortic Root 2.23 cm F: 2.7 - 3.3 LA Volume 107.10 mL Left Atrium 4.38 cm F: 2.7 - 3.8 LA Volume Index 42.33 mL/m2 (M/F) 16-34 LVOT 1.99 cm (M/F) 1.5-2.5 M-Mode Dimensions RVDd 3.82 cm (0.9-2.6) LA Diam 5.38 cm (1.9-4.0) LVDd 4.46 cm (3.5-5.7) Ao Diam 3.32 cm (2.0-3.7) LVDs 4.09 cm (3.5-5.7) IVSd 1.45 cm (0.6-1.1) PWd 1.21 cm (0.6-1.1) EF (Teich) 30.40% EPSs 1.01 cm FS 14.30% EDV (Teich) 106.00 mL TAPSE 1.81 (<1.7) ESV (Teich) 73.80 mL LV Diastology E Decel Time 127.00 (160-240 msec) E/A Ratio 3.25 MED E' 6.30 (< 7 cm/sec) MED A' 2.70 cm/s E'/MED E' Ratio 21.78 (>14) LAT E' 6.50 (<10 cm/sec) LAT A' 3.40 cm/s E/LAT E' Ratio 21.11 (>14) Aortic Valve LVOT Max 73.00 (70-110 cm/s) LVOT VTI 16.00 cm AoV Peak Murtaza. 480.00 (50-130 cm/s) AO Peak GR. 51.30 mmHg AO Mean GR. 57.00 (<5 mmHg) AO VTI 104.83 (18-25 cm) MICHAEL (VTI) 0.95 (2.5-4.5 cm2) Mitral Valve MV A Velocity 42.00 (40-130 cm/s) E/A Ratio 3.25 MV Decel. Time 127.00 (160-240 ms) MV PHT 37.00 ms Pulmonary Valve PV Peak Velocity 137.00 (50-150 cm/s) NY End VMAX 250.00 cm/s Tricuspid Valve TR P. Velocity 332.00 cm/s RAP Estimate 10.00 mmHg RVSP 54.00 mmHg Left Ventricle Technically difficult study because of the patient factors and poor acoustic windows. Left atrium is mildly enlarged, left ventricle is mildly dilated, mild concentric left ventricular hypertrophy, estimated ejection fraction 40%, left ventricle is globally hypokinetic, endocardial surfaces are poorly visualized. Diastolic parameters are inconclusive. Right Ventricle Right atrium and right ventricle are mildly enlarged with normal contractility, pacemaker lead seen in right ventricle. Aortic Valve Aortic valve leaflets are not well visualized, historically patient has a bioprosthetic aortic valve, the mean gradient across valve is 57 mmHg, valve area is 0.5 cm represents critical prosthetic valve stenosis, there is mild aortic insufficiency. Mitral Valve Mitral valve leaflets are minimally thickened, there is mild mitral regurgitation. Tricuspid Valve Tricuspid valve grossly normal, there is mild tricuspid regurgitation, calculated right ventricular systolic pressure is 54 mmHg. Pulmonic Valve Pulmonic valve is poorly visualized. Great Vessels Aortic root is normal size. Inferior vena cava is poorly visualized. Pericardium No significant pericardial effusion noted. Conclusion 1. Technically difficult study because of the patient factors and poor acoustic windows. 2. Biatrial enlargement, normal left ventricular size, mild concentric left ventricular hypertrophy, estimated ejection fraction approximately 40% with no obvious regional wall motion abnormality, diastolic parameters are inconclusive. 3. Bioprosthetic aortic valve leaflets are not well visualized, there is severe prosthetic valve stenosis valve area calculated 0.5 cm???, there is mild aortic insuff
[2021-08-18 12:46] LABS: Chloride 100 mmol/L (98-107)
[2021-08-18 12:47] LABS: Potassium 3.9 mmoL/L (3.5-5.1); Sodium 135 mmol/L (136-145)
[2021-08-18 12:49] LABS: Hypochromasia 2+; Lymphocytes % 9 % (10-50); Monocytes % 1 % (2-9); Neutrophils % 90 % (42-76); Platelet Estimate Normal; Total Cells Counted 100
[2021-08-18 12:50] LABS: Anion Gap 15.9 mEq/L (5-15); Anisocytosis 2+; Blood Urea Nitrogen 20 mg/dl (7-17); Calcium 9.6 mg/dl (8.4-10.2); Carbon Dioxide 23 mmol/L (22.0-30.0); Creatinine Clearance Estimated 34 mL/min (50-200); Estimated Glomerular Filt Rate 33 ml/min (>60); GFR (African American) 40 ML/MIN (>60); Glucose 279 mg/dl (74-100)
[2021-08-18 13:05] LABS: Troponin I 0.21 ng/ml (0.00-0.034)
--- NOTE | 2021-08-18 13:10 | PC.NURSE ---
received a call from lab reporting a critical troponin lab of 0.21, Name and verified. MD Rodriguez made aware.
[2021-08-18 13:30] LABS: NT Pro Brain Natriuretic Pep. 48200 pg/mL (0-125)
--- NOTE | 2021-08-18 17:47 | PC.NURSE ---
pt has several questions about TAVR procedure. Education retrieved regarding TAVR, printed out, and given to pt. Went over all information. Pt and mother appreciative.
[2021-08-18 18:17] LABS: POC Glucose,Bedside 245 (70-110)
--- NOTE | 2021-08-18 18:29 | PC.NURSE ---
shift summary: Pt A&OX4. Not been out of bed. Pickett cath in place, 200 mL drained this shift. No BM this shift. Pt up to bedside commode with assistance. Vapotherm at 20 L/70%. Diltiazem drip at 10 mg/hr. milrinone at 0.125 mg/hr. Family at bedside, call light in reach, bed in lowest position and wheels locked.
--- NOTE | 2021-08-18 20:30 | PC.NURSE ---
PT C/O MILD CHEST PAIN, NOTIFIED MD GIANA MD ORDERED DILAUDID EVERY 20 MINUTES UNTIL CHEST PAIN STOPS
[2021-08-18 20:46] LABS: POC Glucose,Bedside 274 (70-110)
[2021-08-19] VITALS (16 sets, daily range): BP systolic 71–160; BP diastolic 25–65; PULSE 60–102; RESP 13–35; TEMP 36.6; O2SAT 93–100; BMI 61.2
[2021-08-19 06:06] LABS: Basophils # 0.1 K/mm3 (0-0.2); Basophils % 0.4 % (0.1-2.0); Eosinophils % 0.1 % (0.1-12.0); Hematocrit 30.6 % (37.0-47.0); Hemoglobin 9.1 g/dL (12.2-16.2); Mean Corpuscular HGB Conc 29.9 g/dL (31.8-35.4); Mean Corpuscular Hemoglobin 28.9 pg (27.0-31.2); Mean Corpuscular Volume 96.9 fl (81-99); Mean Platelet Volume 9.2 fl (7.4-10.4); Monocytes % 4.2 % (1.7-9.3); Neutrophils # 22.3 K/mm3 (1.8-7.8); Neutrophils % 91.2 % (37.0-80.0); Platelet Count 363 K/mm3 (142-424); Red Blood Count 3.15 M/mm3 (4.20-5.40); Red Cell Distribution Width 18.3 % (11.5-17.5); White Blood Count 24.5 K/mm3 (4.8-10.8)
[2021-08-19 06:09] LABS: MANUAL DIFFERENTIAL MANUAL DIFFERENTIAL (MANUAL DIFF)
[2021-08-19 06:11] LABS: Chloride 98 mmol/L (98-107); Potassium 4.4 mmoL/L (3.5-5.1); Sodium 133 mmol/L (136-145)
[2021-08-19 06:13] LABS: Blood Urea Nitrogen 31 mg/dl (7-17); Creatinine Clearance Estimated 21 mL/min (50-200); Estimated Glomerular Filt Rate 19 ml/min (>60); GFR (African American) 23 ML/MIN (>60)
[2021-08-19 06:14] LABS: Alanine Aminotransferase 31 U/L (12-78); Albumin Level 4.2 g/dl (3.5-5.0); Albumin/Globulin Ratio 1.2 (1.1-1.8); Alkaline Phosphatase 78 U/L (38-126); Anion Gap 19.4 mEq/L (5-15); Aspartate Amino Transferase 56 U/L (14-36); Bilirubin,Total 4.6 mg/dl (0.2-1.3); Carbon Dioxide 20 mmol/L (22.0-30.0); Globulin 3.4 g/dL (1.3-3.2); Glucose 282 mg/dl (74-100); Total Protein,Serum 7.6 g/dl (6.3-8.2)
[2021-08-19 06:16] LABS: POC Glucose,Bedside 346 (70-110)
[2021-08-19 06:16] LABS: POC Glucose,Bedside 281 (70-110)
[2021-08-19 06:41] LABS: NT Pro Brain Natriuretic Pep. 78500 pg/mL (0-125)
[2021-08-19 07:30] LABS: Hypochromasia 1+; Lymphocytes % 5 % (10-50); Monocytes % 6 % (2-9); Neutrophils % 89 % (42-76); Total Cells Counted 100
[2021-08-19 07:31] LABS: Platelet Estimate Normal
--- NOTE | 2021-08-19 09:17 | HMH.ACPN2 ---
Internal Medicine - PN: Subj *Date: 08/19/21 *Time: 19:16 Interval history: 56-year-old female sitting up in chair, multiple family members in room including mother. Patient is on Vapotherm with oxygen saturations of 92%. Continues on diltiazem and milrinone drips. Exam Vital signs and Labs for Last 24 Hours: Temp Pulse Resp BP Pulse Ox 97.8 F 92 H 31 H 110/49 L 98 08/19/21 08:04 08/19/21 06:12 08/19/21 06:00 08/19/21 06:00 08/19/21 06:12 Laboratory Results - last 24 hr 08/18/21 11:42: POC Glucose 274 H 08/18/21 12:25: WBC 12.0 H, RBC 3.25 L, Hgb 9.5 L, Hct 30.8 L, MCV 94.6, MCH 29.1, MCHC 30.8 L, RDW 18.1 H, Plt Count 339, MPV 8.9, Neut % (Auto) 90.6 H, Lymph % (Auto) 6.5 L, [place] % (Auto) 2.1, Eos % (Auto) 0.5, Baso % (Auto) 0.3, Neut # (Auto) 10.9 H, Lymph # (Auto) 0.8, [place] # (Auto) 0.3, Eos # (Auto) 0.1, Baso # (Auto) 0.0, Total Counted 100, Neutrophils % (Manual) 90 H, Lymphocytes % (Manual) 9 L, Monocytes % (Manual) 1 L, Platelet Estimate Normal, Hypochromasia 2+, Anisocytosis 2+ 08/18/21 12:25: Sodium 135 L, Potassium 3.9, Chloride 100, Carbon Dioxide 23, Anion Gap 15.9 H, BUN 20 H D, Creatinine 1.60 H D, Estimated Creat Clear 34, Estimated GFR 33 L, Est GFR ( Amer) 40 L D, Glucose 279 H, Calcium 9.6, Troponin I 0.21 H, NT-Pro-B Natriuret Pep 78627 H 08/18/21 16:19: POC Glucose 245 H 08/18/21 20:48: POC Glucose 346 H* 08/19/21 05:33: WBC 24.5 H* D, RBC 3.15 L, Hgb 9.1 L, Hct 30.6 L, MCV 96.9, MCH 28.9, MCHC 29.9 L, RDW 18.3 H, Plt Count 363, MPV 9.2, Neut % (Auto) 91.2 H, Lymph % (Auto) 4.0 L, Sully % (Auto) 4.2, Eos % (Auto) 0.1, Baso % (Auto) 0.4, Neut # (Auto) 22.3 H, Lymph # (Auto) 1.0, Sully # (Auto) 1.0, Eos # (Auto) 0.0, Baso # (Auto) 0.1, Total Counted 100, Neutrophils % (Manual) 89 H, Lymphocytes % (Manual) 5 L, Monocytes % (Manual) 6, Platelet Estimate Normal, Hypochromasia 1+ 08/19/21 05:33: Sodium 133 L, Potassium 4.4, Chloride 98, Carbon Dioxide 20 L, Anion Gap 19.4 H, BUN 31 H D, Creatinine 2.60 H D, Estimated Creat Clear 21, Estimated GFR 19 L*, Est GFR ( Amer) 23 L D, Glucose 282 H, Calcium 10.0, Total Bilirubin 4.6 H, AST 56 H D, ALT 31 D, Alkaline Phosphatase 78, NT-Pro-B Natriuret Pep 50401 H, Total Protein 7.6, Albumin 4.2, Globulin 3.4 H, Albumin/Globulin Ratio 1.2 08/19/21 06:04: POC Glucose 281 H I & O for Last 24 hours: Intake & Output 08/16/21 08/17/21 08/18/21 08/19/21 23:59 23:59 23:59 23:59 Intake Total 960 / 960 668 / 668 548 / 708 434 / 434 Output Total 1300 / 1300 820 / 1070 600 / 600 Balance -340 / -340 -152 / -402 -52 / 108 414 / 414 Weight 358 lb 14.601 oz 359 lb 0.012 oz Microbiology Reports for the Last 24 Hours: Microbiology 08/16/21 17:20 Urine,Clean Catch Urine Culture - Preliminary - Constitutional mild distress - *Routine HEENT Exam Head: Present: normocephalic Eye: Present: EOMI ENT: Present: mucous membranes moist - *Routine Neck Exam Present: trachea midline. Absent: tracheal deviation - *Routine Respiratory Exam Present: decreased breath sounds, rhonchi - *Routine Cardiovascular Exam Present: RRR, murmur - *Routine Abdominal Exam Present: soft, normoactive bowel sounds. Absent: tenderness, firm - *Routine Extremities Exam Present: edema, pulses intact. Absent: cyanosis, clubbing - *Routine Skin Exam Present: intact, erythema, dry. Absent: cyanosis - *Routine Neurological Exam Present: alert, oriented X3. Absent: motor deficit, altered mental status - Routine Psychiatric Exam Present: normal affect, normal thought process. Absent: visual hallucinations Assessment and Plan (1) Non-STEMI (non-ST elevated myocardial infarction) Status: Acute Category: Medical Code(s): I21.4 - Non-ST elevation (NSTEMI) myocardial infarction (2) History of endocarditis Status: Acute Category: Medical Code(s): Z86.79 - Personal history of other diseases of the circulatory system (3) Aortic valve prosthesis
--- NOTE | 2021-08-19 09:55 | HMH.PNCARD ---
Subjective Date: 08/19/21 Time: 09:55 Principal diagnosis: severe aortic stenosis, acute on chronic heart failure, mingo Interval history: Patient resting, currently on Vapotherm. Remains on dilt and milrinone. Little urine output over the night. Exam Vital signs and Labs for Last 24 Hours: Temp Pulse Resp BP Pulse Ox 97.8 F 95 H 31 H 110/49 L 98 08/19/21 08:04 08/19/21 09:50 08/19/21 06:00 08/19/21 06:00 08/19/21 06:12 Laboratory Results - last 24 hr 08/18/21 11:42: POC Glucose 274 H 08/18/21 12:25: WBC 12.0 H, RBC 3.25 L, Hgb 9.5 L, Hct 30.8 L, MCV 94.6, MCH 29.1, MCHC 30.8 L, RDW 18.1 H, Plt Count 339, MPV 8.9, Neut % (Auto) 90.6 H, Lymph % (Auto) 6.5 L, [place] % (Auto) 2.1, Eos % (Auto) 0.5, Baso % (Auto) 0.3, Neut # (Auto) 10.9 H, Lymph # (Auto) 0.8, [place] # (Auto) 0.3, Eos # (Auto) 0.1, Baso # (Auto) 0.0, Total Counted 100, Neutrophils % (Manual) 90 H, Lymphocytes % (Manual) 9 L, Monocytes % (Manual) 1 L, Platelet Estimate Normal, Hypochromasia 2+, Anisocytosis 2+ 08/18/21 12:25: Sodium 135 L, Potassium 3.9, Chloride 100, Carbon Dioxide 23, Anion Gap 15.9 H, BUN 20 H D, Creatinine 1.60 H D, Estimated Creat Clear 34, Estimated GFR 33 L, Est GFR ( Amer) 40 L D, Glucose 279 H, Calcium 9.6, Troponin I 0.21 H, NT-Pro-B Natriuret Pep 66834 H 08/18/21 16:19: POC Glucose 245 H 08/18/21 20:48: POC Glucose 346 H* 08/19/21 05:33: WBC 24.5 H* D, RBC 3.15 L, Hgb 9.1 L, Hct 30.6 L, MCV 96.9, MCH 28.9, MCHC 29.9 L, RDW 18.3 H, Plt Count 363, MPV 9.2, Neut % (Auto) 91.2 H, Lymph % (Auto) 4.0 L, [place] % (Auto) 4.2, Eos % (Auto) 0.1, Baso % (Auto) 0.4, Neut # (Auto) 22.3 H, Lymph # (Auto) 1.0, [place] # (Auto) 1.0, Eos # (Auto) 0.0, Baso # (Auto) 0.1, Total Counted 100, Neutrophils % (Manual) 89 H, Lymphocytes % (Manual) 5 L, Monocytes % (Manual) 6, Platelet Estimate Normal, Hypochromasia 1+ 08/19/21 05:33: Sodium 133 L, Potassium 4.4, Chloride 98, Carbon Dioxide 20 L, Anion Gap 19.4 H, BUN 31 H D, Creatinine 2.60 H D, Estimated Creat Clear 21, Estimated GFR 19 L*, Est GFR ( Amer) 23 L D, Glucose 282 H, Calcium 10.0, Total Bilirubin 4.6 H, AST 56 H D, ALT 31 D, Alkaline Phosphatase 78, NT-Pro-B Natriuret Pep 69947 H, Total Protein 7.6, Albumin 4.2, Globulin 3.4 H, Albumin/Globulin Ratio 1.2 08/19/21 06:04: POC Glucose 281 H I & O for Last 24 hours: Intake & Output 08/16/21 08/17/21 08/18/21 08/19/21 23:59 23:59 23:59 23:59 Intake Total 960 / 960 668 / 668 548 / 708 434 / 434 Output Total 1300 / 1300 820 / 1070 600 / 600 20 / 20 Balance -340 / -340 -152 / -402 -52 / 108 414 / 414 Weight 358 lb 14.601 oz 359 lb 0.012 oz Microbiology Reports for the Last 24 Hours: Microbiology 08/16/21 17:20 Urine,Clean Catch Urine Culture - Preliminary - *Routine Respiratory Exam Present: rhonchi, distant breath sounds - *Routine Cardiovascular Exam Present: RRR, murmur - *Routine Extremities Exam Present: edema Progress Note: A&P (1) Non-STEMI (non-ST elevated myocardial infarction) Status: Acute (2) History of endocarditis Status: Acute (3) Aortic valve prosthesis present Status: Acute (4) Diabetes mellitus with diabetic autonomic neuropathy, with long-term current use of insulin Status: Acute (5) Atrial fibrillation Status: Acute (6) Pulmonary hypertension Status: Acute (7) Hypothyroid Status: Acute (8) Asthma Status: Acute (9) Cardiac volume overload Status: Acute (10) CHF (congestive heart failure) Status: Acute (11) Chronic renal disease Status: Acute (12) Proteinuria Status: Acute (13) Pacemaker Status: Acute (14) Pulmonary hypertension Status: Acute (15) History of cardioversion Status: Acute (16) Cirrhosis Status: Acute (17) Prosthetic aortic valve stenosis Status: Acute (18) Obesity Status: Acute Assessment and Plan for All Diagnoses:: Acute sytolic heart failure NYHA IV -Echo 08/17 EF 40, severely thicke
[2021-08-19 10:09] LABS: ABG Base Excess -11.3 mmol/L (-2.4-2.3); ABG HCO3 13.6 mmhg (22.0-26.0); ABG Oxygen Saturation 93 % (90-100); ABG PCO2 22.9 mmhg (35.0-45.0); ABG PH 7.39 mmol/L (7.35-7.45); ABG PO2 71.8 mmhg (80-100); ABG TCO2 14.3 mmhg (23-27)
[2021-08-19 10:11] LABS: Oxygen 70% %
--- NOTE | 2021-08-19 10:33 | PC.NURSE ---
notified Corey Lowe APRN of ABG results
--- NOTE | 2021-08-19 12:08 | PC.NURSE ---
Dr. Fraser and Debi Bray APRN spoke with pt and family regarding disease progression, treatment options, and POC. Pt decided to change code status to DNR. Dr. Fraser answered all questions that pt and family had. Comfort meds added to POC: Dilaudid IV, Ativan IV, and Robinul IV.
--- NOTE | 2021-08-19 12:46 | PC.NURSE ---
ROUNDED ON PATIENT. FAMILY HAS COMFORT CART IN ROOM. NO NEEDS AT THIS TIME VOICED. FAMILY CONCERNED STATING SHE WASN'T RESPONSIVE PATIENT DOES APPEAR DROWSY BUT ANSWERS QUESTIONS. PAIN MEDS HAD BEEN ADMINISTERED EARLIER. NO QUESTIONS AT THIS TIME.
--- NOTE | 2021-08-19 18:10 | PC.NURSE ---
shift summary: Pt has progressively worsened since start of shift. Pt now lethargic. Will open eyes and answer questions slowly. Is now a DNR and comfort care. Continues on Vapotherm 25L/90% with O2 sat in low 90s. Vitals are now Qshift as long as family agree. Continues on tele with a paced rhythm at times. Pt also having Afib controlled with intermittent PVCs. Has been sitting in chair entire shift. She reports that she is able to breathe better when sitting up. Refuses to go back to bed. Is not eating. Oral care Q2 per staff. Taking sips of water. Diltiazem gtt infusing @ 5mg/hr and Milrinone gtt infusing @ 0.125mcg/kg/min (6.1mL/hr) per cardiology. No BM this shift. Pickett catheter in place with no UOP this shift. Comfort meds being given prn when pt asks or nonverbal s/s are present. Multiple family members present and coping appropriately and are thankful for care given by all staff.
--- NOTE | 2021-08-19 21:06 | P.DN_ITS ---
Pronouncement Note - Date and Time of Date of : 08/19/21 Time of : 20:45 - Additional Data Confirmation of : no pulse, no respirations, no heart sounds, pupils fixed and dilated Family: at bedside Attending/PCP notified?: Yes Attending physician: Raul Ramírez MD Was code activated?: No Autopsy requested?: No wrapper layer and examiner soft work notified?: No Organ bank notified?: Yes Advance directives: Yes
--- NOTE | 2021-08-19 23:18 | PC.NURSE ---
Pt DNR. Comfort care measures in place. Family remained at bedside. Breathing noted to decline and more guppy like. Respirations ceased. Pt noted to be asystole. Was assessed and pronounced by MD. AVILES 2044. Post mortem care provided. Sulaiman notified and ruled out for donation by Will Tamar # [phone]. [facility] home notified. Pt left floor in hands of home at 2300.
--- NOTE | 2021-08-21 17:53 | HMH.DCSUM ---
General - General Admission date:: 08/15/21 Discharge date: 08/19/21 HPI HPI: Patient is a 56-year-old female who was admitted to our service in transfer from [facility] last night. Transfer was prompted by elevated troponins and a complex cardiac history. Patient is status post left heart cath in October 2020. She relays there were no occlusive lesions. Subsequent right heart cath showed pulmonary hypertension. She is followed by Dr. Liliana Khan, and Dr Eduardo. Her bakery assistant had suggested admission at [facility] for diuresis but they had no beds. They were trying to arrange it with her home health service but these plans did not come to fruition. Patient has a history of pacemaker, placed [address] Fraser. History of bovine aortic valve, by Dr Campos History of atrial fibrillation, has failed at least 2 attempts at cardioversion. He was placed on amiodarone, metoprolol and digoxin subsequently. Patient had an unfortunate episode of endocarditis, diagnosed in mid May and she remained at till July 17. He relays that vegetations were discovered on the bovine valve. She remains on suppressive antibiotics. Patient with history of pulmonary embolism x2. Eliquis. Patient with history of BROOK. Patient has type 2 diabetes with known proteinuria. Patient is hypothyroid. While at patient underwent a liver biopsy which demonstrated cirrhosis. He denies a history of hepatitis or alcohol. She was told at that point that she was not decompensated. Patient has a markedly elevated BMI. Dr. Campos deferred any further valve surgery. Hospital Course Hospital Course: The patient was admitted on 08/15/2021 with a very complex cardiac history. Cardiology was consulted. Patient was found to have critical cardiac valvular disease and was not a candidate for any further surgery. Patient's condition continued to deteriorate. Dr. Fraser discussed her situation with the family in detail and all opted for comfort care. Patient was pronounced at 2044 on 08/19/2021 Objective Vital signs: Temp Pulse Resp BP Pulse Ox 97.8 F 60 13 80/25 L 93 L 08/19/21 08:04 08/19/21 20:00 08/19/21 19:29 08/19/21 19:29 08/19/21 19:29 Comments: - *Routine HEENT Exam Comments: - *Routine Neck Exam Comments: - *Routine Respiratory Exam Present: other - *Routine Cardiovascular Exam Present: other - *Routine Abdominal Exam Present: other - *Routine Extremities Exam Comments: - *Routine Skin Exam Comments: Results Labs on day of discharge: Labs from last 24 hours 08/16/21 17:20 Urine Color Yellow Urine Appearance Clear Urine pH 6.0 Ur Specific [place] 1.015 Urine Protein Trace Urine Glucose (UA) Negative Urine Ketones Negative Urine Blood Negative Urine Nitrate Negative Urine Bilirubin Negative Urine Urobilinogen 0.2 Ur Leukocyte Esterase Negative Urine RBC None Urine WBC 3-5 Ur Squamous Epith Cells 3-5 Urine Bacteria 2+ Urine Yeast 1+ DS: Diagnosis - Discharge Diagnosis (1) Non-STEMI (non-ST elevated myocardial infarction) Status: Acute (2) History of endocarditis Status: Acute (3) Aortic valve prosthesis present Status: Acute (4) Diabetes mellitus with diabetic autonomic neuropathy, with long-term current use of insulin Status: Acute (5) Atrial fibrillation Status: Acute (6) Pulmonary hypertension Status: Acute (7) Hypothyroid Status: Acute (8) Asthma Status: Acute (9) Cardiac volume overload Status: Acute (10) CHF (congestive heart failure) Status: Acute (11) Chronic renal disease Status: Acute (12) Proteinuria Status: Acute (13) Pacemaker Status: Acute (14) Pulmonary hypertension Status: Acute (15) History of cardioversion Status: Acute (16) Cirrhosis Status: Acute (
== END 2021-08-19 23:00 | disposition expired ==
PROVIDERS: Emergency Medicine; Internal Medicine; Nurse Practitioner; Admitting Provider Family Medicine; Visit Provider Family Medicine
DX: I21.4 Non-ST elevation (NSTEMI) myocardial infarction (principal); I50.21 Acute systolic (congestive) heart failure; I13.0 Hypertensive heart and chronic kidney disease with heart failure and stage 1 through stage 4 chronic kidney disease, or unspecified chronic kidney disease; Z68.44 Body mass index [BMI] 60.0-69.9, adult; I38 Endocarditis, valve unspecified; I48.20 Chronic atrial fibrillation, unspecified; N17.9 Acute kidney failure, unspecified; I27.20 Pulmonary hypertension, unspecified; Z95.0 Presence of cardiac pacemaker; Z95.2 Presence of prosthetic heart valve; E03.9 Hypothyroidism, unspecified; Z79.899 Other long term (current) drug therapy; Z79.4 Long term (current) use of insulin; E11.40 Type 2 diabetes mellitus with diabetic neuropathy, unspecified; E87.79 Other fluid overload; N18.9 Chronic kidney disease, unspecified; E11.22 Type 2 diabetes mellitus with diabetic chronic kidney disease; K74.60 Unspecified cirrhosis of liver; E11.43 Type 2 diabetes mellitus with diabetic autonomic (poly)neuropathy; Z79.01 Long term (current) use of anticoagulants; E66.01 Morbid (severe) obesity due to excess calories; E78.5 Hyperlipidemia, unspecified; I65.29 Occlusion and stenosis of unspecified carotid artery; Z86.711 Personal history of pulmonary embolism; J45.909 Unspecified asthma, uncomplicated
CPT/HCPCS: 36415; 71045; 71275; 80048; 80053; 80162; 81001; 82140; 82803; 82962; 83880; 84443; 84484; 85007; 85025; 85378; 87086; 87088; 87186; 93005; 93306; 94640; 94760; 94761; C9803; J1205; J1956; J2260; J2405; Q9967; U0003; U0005